=== PATIENT | male | born 1945 ===

== ENCOUNTER 2016-06-16 11:33 | Day surgery (SDC) | payer OTHER ==
[2016-06-16] MEDS ORDERED: LIDOCAINE 1% 5 ML SDV ONE (12:09)
[2016-06-16] MEDS ORDERED: LR 1,000 ML IV ONE (12:12)
[2016-06-16] MEDS ORDERED: LIDOCAINE 1% 5 ML SDV ID PRN (12:12)
[2016-06-16] MEDS ORDERED: fentaNYL 100 MCG/2 ML INJ ONE (13:24)
[2016-06-16] MEDS ORDERED: PROPOFOL/EMULSION 500 MG/50 ML BOTTLE IV ONE (13:24)
[2016-06-16] MEDS ORDERED: LIDOCAINE 2% 5 ML SDV ONE (13:51)
--- NOTE | 2016-06-16 14:43 | GPN ---
[f rep st] PROCEDURE NOTE DATE OF PROCEDURE: 06/16/2016 PROCEDURE: Colonoscopy with snare polypectomy, biopsy. INDICATION: Mr. Urena is a 70-year-old male, who presents for surveillance of a complex polyp in his ascending colon. He presents for further evaluation. CONSENT: Risks, benefits, and alternatives of the procedure were discussed in great detail with the patient. Risk of infection, bleeding, perforation, and sedation were discussed. All questions answered. Informed consent obtained. MEDICATIONS: Propofol. Please see Anesthesia record for details. ESTIMATED BLOOD LOSS: Insignificant. COLONOSCOPIC EVALUATION: A rectal exam was performed and no palpable masses felt. The colonoscope was introduced into the rectum and advanced to the cecum where the ileocecal valve and appendiceal orifice were visualized. The patient had diverticula in the sigmoid and descending colon. Around the area of the polypectomy where the tattoo martha ends, the mucosa is mildly nodular and may represent residual polypoid tissue. Biopsies were taken. In the hepatic flexure, a 4 mm polyp was seen and removed by snare polypectomy. IMPRESSION: 1. Nodular mucosa at the site of previous polypectomy in the ascending colon. Residual polyp? Biopsies taken. 2. Polyp in hepatic flexure- removed by snare polypectomy 3. Diverticulosis. RECOMMENDATIONS: 1. Follow up colonoscopy in 1 year. 2. Await biopsy results. 3. Fiber supplementation. /[id number]/MODL MTDD
== END 2016-06-16 15:50 | disposition home or self-care (01) ==
LOC: FSGY 11:33 → FPAT 11:33 → FSGY 15:50
PROVIDERS: ATTEND Internal Medicine Gastroenterology
PROC: 0DBK8ZZ Excision of Ascending Colon, Via Natural or Artificial Opening Endoscopic (ICD-10-PCS; principal; 2016-06-16 13:00)
DX: D12.2 Benign neoplasm of ascending colon (principal); K57.90 Diverticulosis of intestine, part unspecified, without perforation or abscess without bleeding
CPT/HCPCS: J2704; J3010

== ENCOUNTER 2017-08-17 11:42 | Day surgery (SDC) | payer OTHER ==
[2017-08-17] MEDS ORDERED: LIDOCAINE 1% 2 ML INJ ID PRN (12:04)
[2017-08-17] MEDS ORDERED: LR 1,000 ML IV ONE (12:04)
[2017-08-17] MEDS ORDERED: INDOMETHACIN 50 MG SUPP PR PRN (13:24)
--- NOTE | 2017-08-17 13:24 | PDANEPAE ---
ANE History of Present Illness colonoscopy followup for colon polyps ANE Past Medical History - Cardiovascular History Hx Hypertension: Yes Hx Arrhythmias: No Hx Chest Pain: No Hx Coronary Artery / Peripheral Vascular Disease: No Hx CHF / Valvular Disease: No Hx Palpitations: No Cardiovascular History Comment: HTN, CONTROLLED WITH EXERCISE AND DIET NOT ON ANY MEDICATION - Pulmonary History Hx COPD: No Hx Asthma/Reactive Airway Disease: No Hx Recent Upper Respiratory Infection: No Hx Oxygen in Use at Home: No Hx Sleep Apnea: No Sleep Apnea Screening Result - Last Documented: Negative Pulmonary History Comment: SEASONAL ALLERGIES - Neurologic History Hx Cerebrovascular Accident: No Hx Seizures: No Hx Dementia: No - Endocrine History Hx Diabetes: No - Renal History Hx Renal Disorders: No - Liver History Hx Hepatic Disorders: No - Neurological & Psychiatric Hx Hx Neurological and Psychiatric Disorders: No - Cancer History Hx Cancer: No - Congenital Disorder History Hx Congenital Disorders: No - GI History Hx Gastrointestinal Disorders: Yes Gastrointestinal History Comment: POLYPS - Other Health History Other Health History: NONE - Chronic Pain History Chronic Pain: No - Surgical History Prior Surgeries: LAMINECTOMY 1984 ANE Review of Systems Review of Systems: - Exercise capacity METS (RN): 5 METS ANE Patient History - Allergies Allergies/Adverse Reactions: Penicillins Allergy (Unknown, Verified 08/12/17 15:02) Other-Enter Comments - Home Medications Home medications: home medication list seen and reviewed Home Medications: NK [No Known Home Meds] 06/04/16 [Last Taken Unknown] - NPO status NPO Status: no food or drink >8 hours NPO Since - Liquids (Date): 08/17/17 NPO Since - Liquids (Time): 09:00 NPO Since - Solids (Date): 08/16/17 NPO Since - Solids (Time): 09:00 - Anes Hx Anes Hx: no prior problems - Smoking Hx Smoking Status: Never smoked - Alcohol Use Alcohol Use: Rarely - Family Anes Hx Family Anes Hx: none Family Hx Anesthesia Complications: NONE ANE Labs/Vital Signs - Vital Signs Blood Pressure: 151/93 Heart Rate: 78 Respiratory Rate: 20 O2 Sat (%): 94 Height: 182.88 cm Weight: 95.254 kg ANE Physical Exam - Airway Neck exam: FROM Mallampati Score: Class 1 Mouth exam: normal dental/mouth exam - Pulmonary Pulmonary: no respiratory distress - Cardiovascular Cardiovascular: regular rate and rhythym - ASA Status ASA Status: II ANE Anesthesia Plan Anesthesia Plan: GA with mask Total IV Anesthesia: Yes
--- NOTE | 2017-08-17 13:24 | PDGENHP ---
History & Physical Chief Complaint: hx of complex polyps History of Present Illness: 71 year old male presents for surveillance of ascending colon polyp Pertinent Past, Social, Family History: pmHx: polyps, htn. FamHx: polyps Relevant Physical Exam: HEENT: anicteric. CV: RRR +s1s2. Lungs: CTAB. Abd: soft, nt, + bs Cardiorespiratory Assessment: ASA 2
[2017-08-17] MEDS ORDERED: PROPOFOL 200 MG/20 ML VIAL ONE ×2 (13:27→13:41)
[2017-08-17] MEDS ORDERED: fentaNYL 100 MCG/2 ML INJ ONE (13:27)
[2017-08-17] MEDS ORDERED: LIDOCAINE 2% 100 MG/5 ML SYR ONE (13:28)
[2017-08-17] MEDS ORDERED: NS 500 ML IV SCH (13:30)
[2017-08-17] MEDS ORDERED: ACETAMINOPHEN 500 MG TAB PO PRN (13:43)
[2017-08-17] MEDS ORDERED: LABETALOL HCL 5 MG/ML 20 ML MDV IVP PRN (13:43)
[2017-08-17] MEDS ORDERED: PHENYLEPHRINE HCL 100 MCG/ML SYR IVP PRN (13:43)
[2017-08-17] MEDS ORDERED: HYDROCODONE/APAP 5/325 TAB PO PRN (13:43)
[2017-08-17] MEDS ORDERED: fentaNYL 100 MCG/2 ML INJ IVP PRN (13:43)
[2017-08-17] MEDS ORDERED: MEPERIDINE 25 MG/ML SYR IVP PRN (13:43)
[2017-08-17] MEDS ORDERED: ONDANSETRON 4 MG/2 ML VIAL IVP PRN (13:43)
[2017-08-17] MEDS ORDERED: DEXAMETHASONE 4 MG/ML VIAL IVP PRN (13:43)
[2017-08-17] MEDS ORDERED: LR 500 ML IV PRN (13:43)
[2017-08-17] MEDS ORDERED: ALBUTEROL 3 ML DEYVIAL IH PRN (13:43)
[2017-08-17] MEDS ORDERED: NALOXONE HCL 0.4 MG/ML INJ IVP PRN (13:43)
[2017-08-17 14:07] VITALS: PULSE 72
--- NOTE | 2017-08-17 14:12 | GIREPORT ---
Formerly [facility] Surgical Services - Endoscopy Department Patient Name: Hu Urena Procedure Date: 08/17/2017 11:54 AM Patient Type: Outpatient Attending MD/ ER Physician: Senthil Rodriguez MD Procedure: Colonoscopy Indications: High risk colon cancer surveillance: Personal history of colonic polyps Patient Profile: 71 year old male with a history of complex polyps presents for surveill ance colonoscopy. Providers: Senthil Rodriguez MD Medicines: Monitored Anesthesia Care Complications: No immediate complications. Estimated blood loss: Minimal. Description of Procedure: After obtaining informed consent, the scope was passed under direct vis ion. Throughout the procedure, the patient's blood pressure, pulse, and oxyg en saturations were monitored continuously. The Colonoscope with irrigatio n channel was introduced through the anus and advanced to the cecum, identified by appendiceal orifice and ileocecal valve. The colonoscopy was performed without difficulty. The patient tolerated the procedure well. The quality of the bowel preparation was good. The ileocecal valve, appendi ceal orifice, and rectum were photographed. Findings: The perianal and digital rectal examinations were normal. Pertinent negatives include no palpable rectal lesions. A 3 mm polyp was found in the descending colon. The polyp was sessile. The polyp was removed with a cold biopsy forceps. Resection and retrieval w ere complete. A tattoo was seen in the ascending colon. A post-polypectomy scar was f ound at the tattoo site. There was no evidence of residual polyp tissue. Diverticula were found in the sigmoid colon. Estimated Blood Loss: Estimated blood loss was minimal. Post Op Diagnosis: - One 3 mm polyp in the descending colon, removed with a cold biopsy forceps. Resected and retrieved. - A tattoo was seen in the ascending colon. A post-polypectomy scar was found at the tattoo site. There was no evidence of residual polyp tissu e. - Diverticulosis in the sigmoid colon. Recommendation: - Discharge patient to home (with escort). - Resume previous diet. - Continue present medications. - Repeat colonoscopy in 3 years for surveillance. - Await pathology results. - Use fiber, for example Citrucel, Fibercon, Konsyl or Metamucil. - Thank you for allowing me to participate in the care of your patient. Attending Participation: I personally performed the entire procedure. Senthil Rodriguez MD Senthil Rodriguez MD 08/17/2017 2:12:01 PM This report has been signed electronicallySenthil Rodriguez MD Number of Addenda: 0 Note Initiated On: 08/17/2017 11:54 AM Total Procedure Duration Time 0 hours 20 minutes 24 seconds [email or web address]
--- NOTE | 2017-08-17 14:35 | POSTANESTH ---
Post Anesthetic Evaluation Cardiovascular Status: Normal, Stable Respiratory Status: Normal, Stable Level of Consciousness/Mental Status: Can Participate in Eval Pain Control: Adequate, Prn Tx Ordered Nausea/Vomiting Control: Adequate, Prn Tx Ordered Complications Possibly Related to Anesthesia: None Noted
[2017-08-17 14:46] VITALS: RESP 14; O2SAT 96
[2017-08-17 15:19] VITALS: BP 129/87; TEMP 98.4
== END 2017-08-17 15:05 | disposition home or self-care (01) ==
LOC: FSGY 11:42
PROVIDERS: ATTEND Internal Medicine Gastroenterology
PROC: 0DBM8ZX Excision of Descending Colon, Via Natural or Artificial Opening Endoscopic, Diagnostic (ICD-10-PCS; principal; 2017-08-17 13:15)
DX: Z12.11 Encounter for screening for malignant neoplasm of colon (principal); K63.5 Polyp of colon; K57.30 Diverticulosis of large intestine without perforation or abscess without bleeding; I10 Essential (primary) hypertension; Z86.010 Personal history of colon polyps; Z83.71 Family history of colonic polyps
CPT/HCPCS: J2001; J2704; J3010